=== PATIENT | male | born 1980 | race Caucasian/White ===

== ENCOUNTER → 2024-06-07 09:01 | Outpatient (CLI) | payer OTHER, SELFPAY ==
--- NOTE | 2024-06-07 09:05 | DI.ECHO.S_ITS ---
[facility]+ [facility] : : [address] : : [place] : : [id number] : : Phone: [phone] Echocardiogram Report + + :Name: BENY LAGUNA Study Date: 06/07/2024 Height: 75 in : :Hospital ReadingLocation: Weight: 260 lb : : Gender: Male BSA: 2.5 m2 : :: 1980 Age: 43 yrs BP: 137/85 mmHg: :Reason For Study: ARRYTHMIA : :Ordering Physician: ANITA, : :KAYLA Performed By: Lisa Sidhu : :Referring: KAYLA HOWARD : + + Interpretation Summary 1. The left ventricular contractility is mildly compromised. Estimate ejection fraction is approximately 45 to 50% with no segmental wall motion abnormalities. No LVH. Normal diastolic function. 2. Normal right ventricular contractility. 3. Mild left ventricular enlargement. All other cardiac chambers are of normal size. 4. Trace to mild mitral regurgitation. 5. No obvious intracardiac shunts. 6. No obvious ventricular masses nor thrombi. 7. No hemodynamically significant pericardial effusion. 8. Low right-sided filling pressures. Conclusion: Mildly depressed left ventricular systolic function with mildly dilated left ventricle and no significant valvular abnormalities. Procedure: A two-dimensional transthoracic echocardiogram with color flow and Doppler was performed. The study quality was technically adequate. There is no prior echocardiogram noted for this patient. The patient was in sinus bradycardia with heart rates between 47-55 bpm during the exam. Left Ventricle: The left ventricle is borderline dilated. There is normal left ventricular wall thickness. The ejection fraction is estimated to be 60- 65%. Right Ventricle: The right ventricle is normal in size and function. Atria: The left atrial size is normal. Right atrial size is normal. There is no Doppler evidence for an interatrial shunt. Mitral Valve: The mitral valve is normal in structure and function. There is mild mitral regurgitation. Aortic Valve: The aortic valve is trileaflet. The aortic valve opens well. There is no aortic valve stenosis. No aortic regurgitation is present. Tricuspid Valve: The tricuspid valve is normal in structure and function. There is trace tricuspid regurgitation. The right ventricular systolic pressure is estimated to be at least 27 mmHg based on an estimated right atrial pressure of 3 mm Hg. Pulmonic Valve: The pulmonic valve leaflets are thin and pliable; valve motion is normal. There is trace pulmonic regurgitation. Great Vessels: The aortic root is normal size. The dimensions of the ascending aorta are normal. The IVC is of normal diameter and collapses greater than 50% with a sniff. This suggests a low right atrial pressure of 3 mm Hg. Pericardium/ Pleura There is no pericardial effusion. There is no pleural effusion. MMode/2D Measurements & Calculations LVIDd: 6.1 cm LVOT diam: 2.1 cm LVIDs: 3.8 cm Ao root diam: 3.3 cm FS: 36.9 % asc Aorta Diam: 3.0 cm EPSS: 0.60 cm Ao Arch Diam (Prox Trans): 3.0 cm IVSd: 0.71 cm LVPWd: 0.77 cm LV perry. diameter/BSA (cm/m^2): 2.5 LV sys. diameter/BSA (cm/m^2): 1.6 LA A2 area: 14.8 cm2 RA long axis: 6.1 cm LA A4 area: 21.3 cm2 RA area: 21.5 cm2 LA length (vol): 5.8 cm RA vol: 64.4 ml LA vol: 46.1 ml RA : 26.3 ml/m2 LA vol index: 18.8 ml/m2 IVC diam: 1.6 cm RVD1 (basal): 3.7 cm RVD2 (mid): 2.8 cm TAPSE: 1.8 cm Doppler Measurements & Calculations Ao V2 max: 127.4 cm/sec LVOT Max El: 79.5 cm/sec Ao V2 mean: 91.0 cm/sec LV V1 max P.5 mmHg Ao max P.5 mmHg LV V1 VTI: 17.7 cm Ao mean P.6 mmHg SAVANNA(I,D): 2.3 cm2 Ao V2 VTI: 26.7 cm SAVANNA(V,D): 2.2 cm2 sev ratio: 0.66 SAVANNA indexed to BSA (cm^2/m^2): 0.93 MV E max el: 43.4 cm/sec TR max el: 246.9 cm/sec MV A max el: 26.4 cm/sec TR max P.4 mmHg MV E/A: 1.6 PA V2 max: 121.1 cm/sec Med Peak E' El: 6.8 cm/sec PA V2 mean: 75.6 cm/sec E/E' med: 6.3 PA mean P.7 mmHg Lat Peak E' El: 14.3 cm/sec PA pr(Accel): 24.2 mmHg E/E' lat: 3.0 E/e' average: 4.7 MV dec time: 0.25 sec SV(LVOT): 61.0 ml Reading Physician:
== END ==
LOC: ECHO 09:04
PROVIDERS: Visit Provider Physician Assistant
DX: I34.0 Nonrheumatic mitral (valve) insufficiency (principal); I49.9 Cardiac arrhythmia, unspecified
CPT/HCPCS: 93306

== ENCOUNTER → 2024-07-06 09:47 | Outpatient (CLI) | payer OTHER, SELFPAY ==
--- NOTE | 2024-07-06 09:51 | DI.RAD.S_ITS ---
PROCEDURE: XR HAND RT 2V INDICATIONS: ARTHRITIS TECHNIQUE: 3 views of the hand(s) acquired. COMPARISON: None. FINDINGS: Bones: No fractures or dislocations. Carpal bones are normally aligned. No suspicious bony lesions. Soft tissues: No suspicious soft tissue calcifications. IMPRESSION: No acute bony abnormality. Approved by: Allen Hicks M.D. on 07/06/2024 at 18:11
--- NOTE | 2024-07-06 09:51 | DI.RAD.S_ITS ---
PROCEDURE: XR HAND LT 2V INDICATIONS: ARTHRITIS TECHNIQUE: 3 views of the hand(s) acquired. COMPARISON: None. FINDINGS: Bones: No fractures or dislocations. Carpal bones are normally aligned. No suspicious bony lesions. Soft tissues: No suspicious soft tissue calcifications. IMPRESSION: No acute bony abnormality. Approved by: Allen Hicks M.D. on 07/06/2024 at 18:10
== END ==
LOC: RAD 09:49
PROVIDERS: Referring Provider Chiropractor; Visit Provider Chiropractor
DX: M13.841 Other specified arthritis, right hand (principal); M13.842 Other specified arthritis, left hand
CPT/HCPCS: 73120